=== PATIENT | female | born 1990 | race Hispanic/Latino ===

== ENCOUNTER 2019-02-27 23:20 | Emergency (ER) | payer OTHER ==
[2019-02-27 23:29] VITALS: BMI 19.3
[2019-02-27 23:30] VITALS: RESP 18
--- NOTE | 2019-02-28 00:16 | ED PDOC ---
Arrival/HPI - General Chief Complaint: Fever Time Seen by Provider: 02/27/19 23:29 Historian: Patient - History of Present Illness Narrative History of Present Illness (Text): 02/28/19 00:14 28-year-old female with no significant past medical history, presents complaining of one day history of fever, chills, sore throat, cough. Patient states that yesterday she had some suprapubic discomfort, went to the bathroom and felt like she passed 2 kidney stones. Otherwise she reports no nausea, vomiting, diarrhea, abdominal pain, back pain, recent travel, sick contacts, chest pain, shortness of breath. Past Medical History - Renal Other/Comment: kidney stones - Psychiatric Hx Substance Use: No - Anesthesia Hx Anesthesia: No Family/Social History Family/Social History: No Known Family HX Smoking Status: Never Smoked Hx Alcohol Use: No Hx Substance Use: No Allergies/Home Meds Allergies/Adverse Reactions: Allergies No Known Allergies Allergy (Verified 02/27/19 23:28) Review of Systems - Review of Systems Constitutional: Fevers, Other (+chills). absent: Fatigue ENT: Sore Throat. absent: Rhinorrhea, Sinus Congestion Respiratory: Cough. absent: SOB Cardiovascular: absent: Chest Pain, Palpitations Gastrointestinal: absent: Abdominal Pain, Diarrhea, Nausea, Vomiting Genitourinary Female: Other (+passed kidney stone). absent: Dysuria, Frequency, Hematuria Musculoskeletal: absent: Arthralgias, Back Pain, Neck Pain Skin: absent: Rash, Pruritis, Skin Lesions Neurological: absent: Headache, Dizziness Physical Exam Vital Signs Temp Pulse Resp BP Pulse Ox 02/27/19 23:28 98.8 F 125 H 18 131/68 97 Temperature: Afebrile Blood Pressure: Normal Pulse: Tachycardic Respiratory Rate: Normal Appearance: Positive for: Well-Appearing, Non-Toxic, Comfortable Pain Distress: None Mental Status: Positive for: Alert and Oriented X 3 - Systems Exam Head: Present: Atraumatic, Normocephalic Pupils: Present: PERRL Extroacular Muscles: Present: EOMI Conjunctiva: Present: Normal Ears: Present: Normal, NORMAL TM, Normal Canal. No: Erythema Mouth: Present: Moist Mucous Membranes Pharnyx: Present: Normal. No: ERYTHEMA, EXUDATE Neck: Present: Normal Range of Motion. No: Meningeal Signs, Lymphadenopathy Respiratory/Chest: Present: Clear to Auscultation, Good Air Exchange. No: Respiratory Distress, Accessory Muscle Use Cardiovascular: Present: Regular Rate and Rhythm, Normal S1, S2. No: Murmurs Abdomen: No: Tenderness, Distention, Peritoneal Signs Back: Present: Normal Inspection. No: CVA Tenderness Upper Extremity: Present: Normal Inspection. No: Cyanosis, Edema Lower Extremity: Present: Normal Inspection. No: Edema Neurological: Present: GCS=15, CN II-XII Intact, Speech Normal Skin: Present: Warm, Dry, Normal Color. No: Rashes Psychiatric: Present: Alert, Oriented x 3, Normal Insight, Normal Concentration Medical Decision Making ED Course and Treatment: 02/28/19 00:12 Plan : - Influenza - Rapid strep - Uhcg - UA, urine cx Influenza Rapid strep Uhcg UA, urine cx Labs : flu (-), strep (-), ua +blood/-uti. On reevaluation, patient remains awake alert and oriented 3 in no acute distress. Results d/w the patient, diagnosis of likely viral illness d/w the patient. Advised to follow up with referral provided in 1-2 days without fail. Advised to take medication as prescribed. Return to the emergency room at any time for any new or worsening symptoms. Patient states she fully agrees with and understands discharge instructions. States that she agrees with the plan and disposition. Verbalized and repeated discharge instructions and plan. I have given the patient opportunity to ask any additional questions. - PA / POLICE CAPTAIN SENIOR / Resident Statement MD/DO has reviewed & agrees with the documentation as recorded. Disposition/Present on Arrival - Present on Arrival Any Indicators Present on Arrival: No History of DVT/PE: No History of Uncontrolled Diabetes: No Urinary Catheter: No History of Decub. Ulcer: No History Surgical Site Infection Following: None - Disposition Have Diagnosis and Disposition been Completed?: Yes Diagnosis: Fever, Viral illness Disposition: HOME/ ROUTINE Disposition Time: 01:00 Patient Plan: Discharge Patient Problems: Current Active Problems Problem Status Onset Fever Acute Viral illness Acute Condition: STABLE Discharge Instructions (ExitCare): Flu, Adult (DC), Viral Syndrome (DC) Additional Instructions: Thank you for letting us take care of you today. You were treated for fever, viral illness. The emergency medical care you received today was directed at your acute symptoms. If you were prescribed any medication, please fill it and take as directed. It may take several days for your symptoms to resolve. Return to the Emergency Department if your symptoms worsen, do not improve, or if you have any other problems. Please contact your doctor in 2 days for re-evaluation and follow up / or call one of the physicians/clinics you have been referred to that are listed on the Patient Visit Information form that is included in your discharge packet. Bring any paperwork you were given at discharge with you along with any medications you are taking to your follow up visit. Our treatment cannot replace ongoing medical care by a primary care provider (PCP) outside of the emergency department. Thank you for allowing the [facility] team to be part of your care today. If you had a urine culture: It will take several days for the results, if any change in treatment is needed we will contact you. Prescriptions: Guaifenesin 400 mg PO QID #20 tablet Ibuprofen [Motrin Tab] 600 mg PO QID PRN #20 tab PRN Reason: Fever >100.4 F Referrals: [facility] at [facility] – [place], [place] [Outside] - Follow up with primary Abdiel Fabian MD [Staff Provider] - Follow up with primary Forms: [employer] (Bengali), WORK NOTE
[2019-02-28 00:39] LABS: URINE BILIRUBIN NEGATIVE (NEGATIVE); URINE BLOOD SMALL (NEGATIVE); URINE GLUCOSE (UA) NEGATIVE (NEGATIVE); URINE LEUKOCYTE ESTERASE NEGATIVE Leu/uL (NEGATIVE); URINE PROTEIN 30 mg/dL (<30 mg/dL); URINE UROBILINOGEN 0.2 E.U./dL (<1 E.U./dL)
[2019-02-28 00:53] LABS: URINE APPEARANCE SL CLOUDY (CLEAR); URINE COLOR YELLOW (YELLOW)
[2019-02-28 01:19] LABS: URINE BACTERIA FEW /hpf
[2019-02-28 02:31] VITALS: BP 128/66; PULSE 90; TEMP 98.6; O2SAT 96
== END 2019-02-28 01:30 | disposition home or self-care (01) ==
LOC: ED 23:20
DX: B34.9 Viral infection, unspecified (principal)